=== PATIENT | female | born 1975 | race African-American/Black ===

== ENCOUNTER → 2019-01-08 | Outpatient (CLI) | payer OTHER ==
--- NOTE | 2019-01-09 10:54 | PCVCIMAG ---
APPROVED REPORT Study performed: 01/08/2019 15:13:50 Exam: Stress Echocardiogram Indication: Hyperlipidemia, Hypertension, Pre op clerance Patient Location: Echo lab Stress Nurse: Catrachita Natarajan RN Status: routine Ht: 5 ft 2 in HR: 70 bpm BP: 112/80 mmHg Rhythm: NSR Medical History Medical History: Hyperlipidemia, Strong family history, Anemia, fatigue Procedure The patient underwent an Exercise Stress Test using the [place]a Protocol. Blood pressure, heart rate, and EKG were monitored. An Echocardiogram was performed by cephalometric technician in four stages in quad fashion. At peak stress, four selected images were obtained and placed side by side with resting images for comparison. Stress Test Details Stress Test: Exercise stress testing was performed using a [place]a protocol. HR Resting HR: 70 bpmMax Heart Rate (APMHR): 176 bpm Max HR Achieved: 169 bpmTarget HR (85% APMHR): 149 bpm % of APMHR: 96 Recovery HR: 83 bpm HR response to stress: Normal HR response to stress BP Resting BP: 112/80 mmHg Max BP: 182/80 mmHg Recovery BP: 120/78 mmHg BP response to stress: Normal blood pressure response to stress. ECG Resting ECG: Sinus Rhythm Stress ECG: Sinus Rhythm Arrhythmia: VPC's Recovery ECG: Sinus Rhythm Clinical Reason for Termination: Maximal effort Exercise duration: 6 min sec Highest Stage Achieved: Stage 2: 2.5 mph at 12% grade. Overall Exercise Capacity for Age: Poor Pre-Stress Echo The resting Echocardiogram showed normal left ventricular contractility with an estimated Ejection Fraction of about 55-60%. Normal wall motion in all segments on baseline images. Post-Stress Echo The stress Echocardiogram showed normal left ventricular contractility with an estimated Ejection Fraction of about 60-65%. Normal augmentation of wall motion in all segments on post stress images. Conclusion Clinical Response: Non-ischemic Exercise Capacity: Below Average Stress ECG Response: Non-ischemic Stress Echo Images: Non-ischemic The left ventricle is normal in size and wall thickness in both the rest and stress images. Mild tricuspid regurgitation, pulmonary artery pressure is 40mmHg. Trace mitral regurgitation. Borderline concentric left ventricular hypertrophy. Other Information Study Quality: Good <Conclusion> The left ventricle is normal in size and wall thickness in both the rest and stress images. Mild tricuspid regurgitation, pulmonary artery pressure is 40mmHg. Trace mitral regurgitation. Borderline concentric left ventricular hypertrophy.
== END ==
LOC: PCVCIMAG 15:35
PROVIDERS: ATTEND Internal Medicine Cardiovascular Disease
DX: Z01.818 Encounter for other preprocedural examination (principal); I07.1 Rheumatic tricuspid insufficiency; I11.9 Hypertensive heart disease without heart failure; E78.5 Hyperlipidemia, unspecified
CPT/HCPCS: 93325; 93351